=== PATIENT | male | born 1940 | race Caucasian/White ===

== ENCOUNTER 2023-03-14 23:33 | Inpatient (IN) | payer OTHER ==
[~2023-03-14] VITALS: Ht 167.6 cm; Wt 81.1 kg
[2023-03-15] VITALS (8 sets, daily range): BP systolic 114–149; BP diastolic 68–93; TEMP 97.2–97.4; O2SAT 85–100
[2023-03-15 01:47] LABS: BASO % 0.2 % (0.0-1.0); EOS % 0.1 % (0.0-3.0); HEMOGLOBIN 10.9 g/dl (13.5-17.5); LYMPH % 8.9 % (24.0-44.0); MEAN CORPUSCULAR HEMOGLOBIN 30.7 pg (27.0-33.0); MONO % 8.9 % (2.0-8.0); NEUTROPHILS # 8.7 10^3/uL (1.5-8.5); NEUTROPHILS % 81.5 % (36.0-66.0); PLATELET COUNT, AUTOMATED 143 10^3/uL (150-450); RED BLOOD COUNT 3.55 10^6/uL (4.30-6.10); WHITE BLOOD COUNT 10.7 10^3/uL (4.0-10.0)
[2023-03-15 01:54] LABS: CALCIUM LEVEL 8.5 MG/DL (8.3-10.6); CK-MB VALUE MASS 8.5 NG/ML (<3.6); CREATININE FOR GFR 1.3 MG/DL (0.70-1.30); GLOMERULAR FILTRATION RATE 56.1 (>35); MAGNESIUM LEVEL 1.6 MG/DL (1.8-2.4); MB/CK RELATIVE INDEX 0.74 (< OR =4); POTASSIUM SERUM 4.5 MMOL/L (3.5-5.1); TOTAL PROTEIN 6.5 G/DL (5.7-8.2)
[2023-03-15 02:01] LABS: THYROID STIMULATING HORMONE 0.985 uIU/ML (0.55-4.78)
[2023-03-15] MEDS ORDERED: ALBUTEROL SULFATE 2.5MG/0.5ML INH NEB SOLN NEB PRN (03:40)
[2023-03-15] MEDS ORDERED: ONDANSETRON 4MG 2ML VIAL IV PRN (03:40)
[2023-03-15] MEDS ORDERED: HYDROMORPHONE HCL 0.5 MG/ 0.5 ML SYRINGE IV PRN (03:40)
[2023-03-15] MEDS ORDERED: QUET50TA4 PO (03:48)
[2023-03-15] MEDS ORDERED: VITA100093 PO (03:48)
[2023-03-15] MEDS ORDERED: XARE15TA PO (03:48)
[2023-03-15] MEDS ORDERED: B-12100010 PO (03:48)
[2023-03-15] MEDS ORDERED: LISI10TA22 PO (03:48)
[2023-03-15] MEDS ORDERED: FISH1CAP26 PO (03:48)
[2023-03-15] MEDS ORDERED: ROSU10TA6 PO (03:48)
[2023-03-15] MEDS ORDERED: TADA5TAB PO (03:48)
[2023-03-15] MEDS ORDERED: FOLI1TAB11 PO (03:48)
[2023-03-15] MEDS ORDERED: GALA16CA PO (03:48)
[2023-03-15] MEDS ORDERED: ALPR0.25 PO (03:48)
[2023-03-15] MEDS ORDERED: METH2.5T48 PO (03:48)
[2023-03-15] MEDS ORDERED: ZOLO100T PO (03:48)
[2023-03-15] MEDS ORDERED: HOME MED LIST COMPLETE! XX SCH (03:50)
[2023-03-15 04:26] LABS: RSV AMPLIFICATION NEGATIVE (NEGATIVE)
[2023-03-15 05:30] LABS: HEMATOCRIT 33.7 % (42.0-52.0); HEMOGLOBIN 10.6 g/dl (13.5-17.5); MEAN CORPUSCULAR HEMOGLOBIN 29.2 pg (27.0-33.0); MEAN CORPUSCULAR HGB CONC 31.5 g/dl (32.0-36.5); MEAN CORPUSCULAR VOLUME 92.8 fl (80.0-96.0); PLATELET COUNT, AUTOMATED 133 10^3/uL (150-450); RED BLOOD COUNT 3.63 10^6/uL (4.30-6.10); WHITE BLOOD COUNT 10.4 10^3/uL (4.0-10.0)
[2023-03-15] MEDS: MAG SULF 1GM/100ML (MAG RUN) 1 GM in IV 1 EA IV SCH ×2 (05:35→06:38)
[2023-03-15 05:45] LABS: INR 1.59; PARTIAL THROMBOPLASTIN TIME 36.4 SECONDS (24.8-34.2); PROTHROMBIN TIME 18.6 SECONDS (12.5-14.5)
[2023-03-15] MEDS ORDERED: HALOPERIDOL 5MG/ML 1ML VIAL IM STA (06:37)
[2023-03-15] MEDS ORDERED: LORazepam 2 MG/ML 1ML VIAL IM STA (06:38)
[2023-03-15] MEDS ORDERED: MIDAZOLAM INJ 2MG/2ML VIAL IV ONE (06:45)
[2023-03-15 09:19] LABS: HEMATOCRIT 36.5 % (42.0-52.0); HEMOGLOBIN 11.7 g/dl (13.5-17.5); MEAN CORPUSCULAR HEMOGLOBIN 30.1 pg (27.0-33.0); MEAN CORPUSCULAR HGB CONC 32.1 g/dl (32.0-36.5); MEAN CORPUSCULAR VOLUME 93.8 fl (80.0-96.0); PLATELET COUNT, AUTOMATED 152 10^3/uL (150-450); RED BLOOD COUNT 3.89 10^6/uL (4.30-6.10); WHITE BLOOD COUNT 12.3 10^3/uL (4.0-10.0)
[2023-03-15] MEDS: SERTRALINE HCL 50 MG TAB PO SCH (09:21)
[2023-03-15] MEDS: ROSUVASTATIN 10 MG TAB (CRESTOR) PO SCH (09:21)
[2023-03-15 13:18] LABS: HEMATOCRIT 32.7 % (42.0-52.0); HEMOGLOBIN 10.5 g/dl (13.5-17.5); MEAN CORPUSCULAR HEMOGLOBIN 29.8 pg (27.0-33.0); MEAN CORPUSCULAR HGB CONC 32.1 g/dl (32.0-36.5); MEAN CORPUSCULAR VOLUME 92.9 fl (80.0-96.0); PLATELET COUNT, AUTOMATED 131 10^3/uL (150-450); RED BLOOD COUNT 3.52 10^6/uL (4.30-6.10)
[2023-03-15] MEDS ORDERED: oxyCODONE 5MG TAB PO PRN (16:10)
[2023-03-15] MEDS: oxyCODONE 5MG TAB PO SCH ×2 (16:30→20:03)
[2023-03-15] MEDS: ACETAMINOPHEN 500 MG TAB PO SCH (20:02)
[2023-03-15] MEDS ORDERED: ALPRAZolam 0.25 MG TAB PO SCH (21:00)
[2023-03-15] MEDS ORDERED: QUEtiapine FUMARATE 50MG TAB PO SCH (21:00)
[2023-03-16 00:11] VITALS: BP 119/58; TEMP 97; O2SAT 98
[2023-03-16 03:56] VITALS: BP 134/67; TEMP 97.5; O2SAT 98
[2023-03-16 04:39] LABS: BASO % 0.2 % (0.0-1.0); EOS # 0.1 10^3/uL (0.0-0.5); EOS % 0.7 % (0.0-3.0); HEMATOCRIT 31.4 % (42.0-52.0); LYMPH # 1.2 10^3/uL (1.5-5.0); LYMPH % 15.1 % (24.0-44.0); MEAN CORPUSCULAR HEMOGLOBIN 29.4 pg (27.0-33.0); MEAN CORPUSCULAR HGB CONC 31.8 g/dl (32.0-36.5); MEAN CORPUSCULAR VOLUME 92.4 fl (80.0-96.0); MONO # 0.8 10^3/uL (0.0-0.8); MONO % 9.7 % (2.0-8.0); NEUTROPHILS % 74.1 % (36.0-66.0); PLATELET COUNT, AUTOMATED 139 10^3/uL (150-450); WHITE BLOOD COUNT 8.1 10^3/uL (4.0-10.0)
[2023-03-16 05:00] LABS: ALBUMIN 2.6 G/DL (3.2-5.2); BILIRUBIN,TOTAL 0.9 MG/DL (0.3-1.2); CALCIUM LEVEL 8.4 MG/DL (8.3-10.6); CREATININE FOR GFR 1.34 MG/DL (0.70-1.30); GLOMERULAR FILTRATION RATE 54.2 (>35); POTASSIUM SERUM 4.4 MMOL/L (3.5-5.1); TOTAL PROTEIN 5.9 G/DL (5.7-8.2)
[2023-03-16 08:00] VITALS: BP 113/67; TEMP 97.4; O2SAT 99
[2023-03-16] MEDS: SERTRALINE HCL 50 MG TAB PO SCH (08:17)
[2023-03-16] MEDS: ACETAMINOPHEN 500 MG TAB PO SCH (08:19)
[2023-03-16] MEDS: ROSUVASTATIN 10 MG TAB (CRESTOR) PO SCH (08:19)
[2023-03-16] MEDS: oxyCODONE 5MG TAB PO SCH (08:23)
[2023-03-16] MEDS ORDERED: VITAMIN D 1,000 INTERNATIONAL UNITS TABLET PO SCH (09:00)
[2023-03-16] MEDS ORDERED: FOLIC ACID 1MG TAB PO SCH (09:00)
[2023-03-16] MEDS ORDERED: CYANOCOBALAMIN 500 MCG TAB PO SCH (09:00)
[2023-03-16] MEDS ORDERED: OMEGA-3 1000MG CAPSULE PO SCH (09:00)
[2023-03-16 12:00] VITALS: BP 119/71; TEMP 97.5; O2SAT 99
[2023-03-16] MEDS ORDERED: ACET-683 PO (13:18)
[2023-03-16] MEDS ORDERED: OXYC-517 PO (13:18)
[2023-03-16] MEDS ORDERED: METHOTREXATE 2.5MG TAB PO ONE (16:00)
== END 2023-03-16 16:42 | disposition home or self-care (01) | DRG 565 ==
LOC: M ED 23:33 → EDBD 23:33 → M ED INP 03-15 03:35 → M ICU 03-15 04:47
PROVIDERS: ADMIT Internal Medicine; ATTEND Internal Medicine
DX: S22.21XA Fracture of manubrium, initial encounter for closed fracture (principal); S12.201A Unspecified nondisplaced fracture of third cervical vertebra, initial encounter for closed fracture; S12.301A Unspecified nondisplaced fracture of fourth cervical vertebra, initial encounter for closed fracture; S12.391A Other nondisplaced fracture of fourth cervical vertebra, initial encounter for closed fracture; M62.82 Rhabdomyolysis; R29.6 Repeated falls; I48.91 Unspecified atrial fibrillation; Z79.01 Long term (current) use of anticoagulants; I11.0 Hypertensive heart disease with heart failure; F03.90 Unspecified dementia, unspecified severity, without behavioral disturbance, psychotic disturbance, mood disturbance, and anxiety; S20.219A Contusion of unspecified front wall of thorax, initial encounter; M06.9 Rheumatoid arthritis, unspecified; N18.30 Chronic kidney disease, stage 3 unspecified; D69.6 Thrombocytopenia, unspecified; Z66 Do not resuscitate; Z79.899 Other long term (current) drug therapy; Z88.8 Allergy status to other drugs, medicaments and biological substances; W18.30XA Fall on same level, unspecified, initial encounter; Y92.009 Unspecified place in unspecified non-institutional (private) residence as the place of occurrence of the external cause